=== PATIENT | male | born 1995 | race Caucasian/White ===

== ENCOUNTER 2016-12-02 21:01 | Emergency (ER) | payer SELFPAY ==
[~2016-12-02] VITALS: Ht 182.9 cm; Wt 77.1 kg
[2016-12-02 21:04] VITALS: BP 128/72
--- NOTE | 2016-12-02 21:18 | Emergency Room Report ---
History of Present Illness General Chief Complaint: Alcohol Intoxication Source: Patient Present Illness HPI Patient is a 21-year-old male presented after increased altered mental status. Patient stated he had 7 shots of alcohol at home. Patient stated that he denied any current complaints. He states he was drinking at home and does not recall how he presented to the hospital. He denies any recent trauma. He denies any fever.He requested some water. Allergies: Coded Allergies: No Known Allergies (Unverified , 12/02/16) Patient History Past Medical History: see triage record Reviewed Nursing Documentation: PMH: Agreed, PSxH: Agreed Nursing Documentation-PMH Past Medical History: No Stated History Review of Systems All Other Systems: negative except mentioned in HPI Physical Exam Vital Signs Date Time Temp Pulse Resp B/P Pulse Ox O2 Delivery O2 Flow Rate FiO2 12/02/16 20:56 97.3 86 16 128/72 98 Room Air General Appearance: well appearing, no apparent distress, alert, GCS 15 Head: normocephalic, atraumatic ENT: hearing grossly normal, normal voice Neck: full range of motion, supple Respiratory: no respiratory distress, speaking full sentences Musculoskeletal: normal inspection, no calf tenderness Neurologic: normal inspection, alert, oriented x3, responsive, medical biller III-XII nml as tested, other - mild ataxia Psychiatric: mood/affect normal Skin: no rash Medical Decision Making Diagnostic Impression: Primary Impression: Acute alcoholic intoxication ER Course This presented for altered mental status. Differential diagnosis included but was not limited to ischemic stroke, subarachnoid hemorrhage, hypoglycemia, spinal cord injury, neurodegenerative disorder, urinary tract infection, hypoxemia. Patient's benign exam and does not appear to require any further imaging or laboratory testing at this time. The patient presented after altered mental status after heavy alcohol use. The patient is an appear to be in any acute distress and is already somewhat sober. The patient was observed in the emergency department.The patient was observed and there emergency department with improvement in his mental status. Patient stated that he was from [place] and have a place to stay.At the time of discharge patient was ambulatory without assistance and had good plan for self care. Last Vital Signs Date Time Temp Pulse Resp B/P Pulse Ox O2 Delivery O2 Flow Rate FiO2 12/02/16 21:04 97.3 16 128/72 98 Room Air 12/02/16 20:56 86 Status: improved Disposition: HOME, SELF-CARE Condition: Stable Stoney Jalloh Dec 02, 2016 21:18
[2016-12-02 23:00] VITALS: BP 98/45
[2016-12-03 01:00] VITALS: BP 101/41
[2016-12-03 02:20] VITALS: BP 110/52
== END 2016-12-03 02:20 | disposition home or self-care (01) ==
LOC: EDBD 21:01 → EMR 21:15
DX: F10.129 Alcohol abuse with intoxication, unspecified (principal)
CPT/HCPCS: 99284